=== PATIENT | female | born 1995 | race Caucasian/White ===

== ENCOUNTER 2017-01-01 13:40 | Emergency (ER) | payer OTHER ==
[~2017-01-01] VITALS: Ht 162.6 cm; Wt 52.1 kg
[2017-01-01 13:44] VITALS: BP 111/80; PULSE 92; TEMP 36.5; O2SAT 97; Ht 162.6 cm; Wt 52.1 kg
[2017-01-01] MEDS ORDERED: BCPILLS PO (13:50)
--- NOTE | 2017-01-01 13:57 | EMERGENCY ROOM VISIT NOTE ---
ED Visit Note First contact with patient: 13:49 CHIEF COMPLAINT: Left Hand laceration HISTORY OF PRESENT ILLNESS: This 34-year-old female presents the ER with chief complaint of a laceration to the palm of her left hand. The patient states that she was trying to remove an avocado pit and accidentally cut her left hand. The patient is right-hand dominant. The patient's immunizations are up- to-date. REVIEW OF SYSTEMS: 6 system review was performed and was negative unless stated otherwise in history of present illness. PMH: The patient is healthy; asthma SOCIAL HISTORY: Patient is a [employer] student. Patient denies any tobacco or alcohol use. PHYSICAL EXAM: Vital Signs: Were reviewed Reviewed Nurse's notes. GENERAL: 21- year-old female appears in no acute distress. MENTAL Status: Alert and oriented 3. LEFT HAND: On the palmar aspect there is a 1.5 cm superficial cut without any active bleeding. The wound looks clean. EMERGENCY DEPARTMENT COURSE: The patient was evaluated. The wound was cleansed with saline and then dried and Dermabond applied. The patient was discharged home in stable condition. DIAGNOSIS: 1.5 cm superficial laceration left hand DISCHARGE INSTRUCTIONS & TREATMENT: you may get the hand wet but do not submerge it in water. The Dermabond will fall off in several days. Any signs of infection, follow-up with [facility] services. Current/Historical Medications Scheduled Control Pills ( Control Pills), 1 TAB PO DAILY Allergies Coded Allergies: No Known Allergies (Unverified , 01/01/17) Vital Signs Date Time Temp Pulse Resp B/P (MAP) Pulse Ox O2 Delivery O2 Flow Rate FiO2 01/01/17 13:44 36.5 92 18 111/80 97 Room Air Departure Information Referrals No Doctor, Assigned (PCP) Patient Instructions [facility]
== END 2017-01-01 14:03 | disposition home or self-care (01) ==
LOC: C.EDB 13:43 → C.EDD 14:03
DX: S61.412A Laceration without foreign body of left hand, initial encounter (principal); W26.0XXA Contact with knife, initial encounter; Y92.9 Unspecified place or not applicable; J45.909 Unspecified asthma, uncomplicated; Z79.3 Long term (current) use of hormonal contraceptives

== ENCOUNTER 2017-01-07 13:29 | Emergency (ER) | payer OTHER ==
[~2017-01-07] VITALS: Ht 162.6 cm; Wt 53.4 kg
[~2017-01-07 13:29] MED LIST: BCPILLS PO
[2017-01-07 13:34] VITALS: BP 113/76; PULSE 93; TEMP 36.5; O2SAT 100; Ht 162.6 cm; Wt 53.4 kg
--- NOTE | 2017-01-07 14:03 | EMERGENCY ROOM VISIT NOTE ---
ED Visit Note First contact with patient: 13:42 CHIEF COMPLAINT: Recheck left hand laceration HISTORY OF PRESENT ILLNESS: Patient is a [id number] 21-year-old white female who returns to the emergency department for reevaluation of a laceration to the palm of her left hand that she sustained 6 days ago. She was trying to cut an avocado when she accidentally cut her hand. She was seen here that day, and wound was repaired with Dermabond. Patient reports that she has been following instructions that she received on discharge. She has noticed in the last day, that the wound appears "white" and she is concerned about infection. There has been no drainage or discharge. No streaking. She has no pain. REVIEW OF SYSTEMS: NEUROLOGICAL: No headache, change in mental status, weakness , numbness, or dizziness. GENERAL: No fever or chills, easy fatigue, loss of appetite, or significant weight change. PMH: Electronic medical records are reviewed and summarized as above/below. See Problem List.. SOCIAL HISTORY: Patient is a college student who lives in an apartment with roommates. PHYSICAL EXAM: Vital Signs: Reviewed Nurse's notes. INTEGUMENTARY: Examination of the palmar aspect of the left hand show a 1.5 cm laceration, with intact Dermabond. Dermabond was removed without difficulty. The patient still has gaping of the wound edges, with herniation of the subcutaneous fat. Wound edges are slightly macerated, but the area is nontender to palpation, there is no erythema, induration or purulent drainage appreciated. Extension and flexion of the fingers is full and strong. Sensation to pain and light touch is intact. EMERGENCY DEPARTMENT COURSE: Dermabond was removed without difficulty. Wound edges are slightly macerated, and still gaping, there is no erythema, fluctuance or purulent drainage appreciated. The area was cleansed with saline and hydrogen peroxide. Benzoin and Steri-Strips were applied. The wound will have to heal by secondary intention, and the patient access understanding of this. She does not have any signs of infection. I do not suspect tendinous injury or retained foreign body. Wound care measures were discussed with the patient and she expressed understanding. Given additional Steri-Strips that she can use to reinforce the wound if necessary. Medication reconciliation: I attest that I have personally reviewed the patient' s current medication list. Blood pressure screening : Patient was found to have normal blood pressure on screening and does not require follow-up. Problem List Medical Problems: (1) Unspecified Asthma, Uncomplicated Status: Chronic Current/Historical Medications Scheduled Control Pills ( Control Pills), 1 TAB PO DAILY Allergies Coded Allergies: No Known Allergies (Unverified , 01/07/17) Vital Signs Date Time Temp Pulse Resp B/P (MAP) Pulse Ox O2 Delivery O2 Flow Rate FiO2 01/07/17 13:34 36.5 93 18 113/76 100 Room Air Departure Information Impression Primary Impression: Laceration of left hand Referrals No Doctor, Assigned (PCP) Patient Instructions My [facility] Additional Instructions Keep the wound clean and dry. May use a small amount of antibiotic ointment over top of the Steri-Strips if desired. Allow the Steri-Strips to fall off on their own. They reinforce Steri-Strips if needed. Limit activity with the hand until laceration heals. Return to the ER for severe pain, persistent fevers, spreading redness, or any worsening of your condition. Follow up with your primary physician within 2-3 days for a recheck of the current condition. Problem Qualifiers Primary Impression: Laceration of left hand Encounter type: subsequent encounter Foreign body presence: without foreign body Qualified Codes: S61.412D - Laceration without foreign body of left hand , subsequent encounter
== END 2017-01-07 14:09 | disposition home or self-care (01) ==
LOC: C.EDB 13:33 → C.EDD 14:09
DX: S61.412A Laceration without foreign body of left hand, initial encounter (principal); W45.8XXA Other foreign body or object entering through skin, initial encounter; Y92.9 Unspecified place or not applicable; Z09 Encounter for follow-up examination after completed treatment for conditions other than malignant neoplasm; Z79.3 Long term (current) use of hormonal contraceptives

== ENCOUNTER 2017-01-21 14:18 | Emergency (ER) | payer OTHER ==
[~2017-01-21] VITALS: Ht 162.6 cm; Wt 53.7 kg
[2017-01-21 14:20] VITALS: Ht 162.6 cm; Wt 53.7 kg
[2017-01-21] MEDS ORDERED: SODIUM CHLORIDE 0.9% 1000ML 1,000 ML IV STA ×3 (14:28→17:41)
[2017-01-21] MEDS ORDERED: IBUPROFEN 600 MG TAB PO STA (14:28)
[2017-01-21] MEDS ORDERED: ONDANSETRON INJ 2 MG/ML 2 ML VIAL IV STA (14:28)
[2017-01-21] MEDS ORDERED: ACETAMINOPHEN 500 MG TAB PO STA (14:28)
[2017-01-21] MEDS ORDERED: CEFTRIAXONE SOD INJ 1 GM ADDVIAL IV STA (14:45)
--- NOTE | 2017-01-21 14:51 | EMERGENCY ROOM VISIT NOTE ---
History Report prepared by Jas: Mina Kirk Under the Supervision of: Dr. Loc Rouse M.D. First contact with patient: 14:25 Chief Complaint: URINARY SYMPTOMS Stated Complaint: POSS. KIDNEY INFECTION, FEVER, ALL SYMPTOMS History of Present Illness The patient is a 21 year old white female with a past medical history of a UTI who presents to the ED with a cc of waxing and waning urinary symptoms beginning last week. Positive fever, nausea, right lower back pain, burning with urination, and urinary frequency. Negative chest pain, shortness of breath , vomiting, or abdominal pain. When her symptoms began she was placed on a week dose of Macrobid. She took cranberry pills and a yeast pill as well. This was her first UTI. She got mildly better, but started to worsen yesterday with a fever and her back pain. She denies any past medical problems, surgeries, or allergies. She is on control with her last menstrual period being 4 weeks ago. Source of History: patient Onset: 1 week ago Position: other () Symptom Intensity: moderate Quality: other (Urinary burning and frequency) Timing: worsening Associated Symptoms: + fevers, + nausea, + back pain, No chest pain, No SOB , No vomiting, No abdominal pain Review of Systems See HPI for pertinent positives and negatives. A total of ten systems were reviewed and were otherwise negative. Past Medical & Surgical Medical Problems: (1) Unspecified Asthma, Uncomplicated Family History Cancer Diabetes mellitus Hypertension Social History Smoking Status: Never Smoker Smokeless Tobacco Use: No Alcohol Use: none Drug Use: none Marital Status: single Housing Status: lives with roommate Occupation Status: [employer] student Current/Historical Medications Scheduled Control Pills ( Control Pills), 1 TAB PO DAILY Cefuroxime Axetil (Cefuroxime Axetil), 1 TAB PO BID Allergies Coded Allergies: No Known Allergies (Unverified , 01/07/17) Physical Exam Vital Signs Date Time Temp Pulse Resp B/P (MAP) Pulse Ox O2 Delivery O2 Flow Rate FiO2 01/21/17 19:36 37.5 90 20 111/71 100 01/21/17 19:35 90 20 111/71 100 Room Air 01/21/17 18:34 90 20 111/71 100 Room Air 01/21/17 17:19 37.5 111 20 122/78 95 Room Air 01/21/17 14:56 128 01/21/17 14:20 39.5 144 20 127/82 95 Room Air Physical Exam GENERAL: Awake, alert, well-appearing, NAD HENT: Normocephalic, atraumatic. EYES: Normal conjunctiva. Sclera non-icteric. NECK: Supple. No nuchal rigidity. FROM. RESPIRATORY: CTAB, no rhonchi, wheezing, crackles CARDIAC: Tachycardic rate, RR, no MRG ABDOMEN: Soft, NTND, BS+ MSK: No chest wall TTP, no LE edema. Mild right sided lower back pain. No true CVA TTP. NEURO: GCS 15, CN 2-12 intact, moves all 4s on command SKIN: No rash or jaundice noted. Medical Decision & Procedures ER Provider Diagnostic Interpretation: Radiology results as stated below per my review and radiologist interpretation: ABD/PELVIS WITHOUT FOR STONE HISTORY: 21 years-old Female likely pyelo, r/o obstructing stone, R LBP acute right-sided low back pain with concern for kidney stones. COMPARISON: None available TECHNIQUE: Multiple axial CT images of the abdomen and pelvis were obtained without IV contrast utilizing kidney stone protocol. A dose lowering technique was used consistent with the principals of FREDRICKRA. FINDINGS: Lung bases are generally clear. No pneumoperitoneum imaged inferior cardiac chambers are unremarkable. The liver, spleen, pancreas and adrenal glands are within normal limits. Gallbladder is mildly contracted. The left kidney, left ureter, uterus, bladder and adnexa are unremarkable. Mild free pelvic fluid within the cul-de-sac is nonspecific and may be physiologic. There is mild dilation of the right renal pelvis and right ureter with thickened urothelial jessica of the ureter demonstrating mild surrounding inflammatory stranding. No obstructing stone or mass identified. The abdominal aorta is normal in course and caliber. No bulky retroperitoneal adenopathy. No bowel obstruction or focal bowel wall thickening. Appendix not definitely seen. No secondary evidence of acute appendicitis. Soft tissues are unremarkable. Bones appear intact. Transitional lumbosacral anatomy noted. IMPRESSION: 1. Mild dilation of the right renal pelvis and right ureter is noted with mild surrounding inflammatory stranding. No obstructing stone or mass identified. These findings may be secondary to ascending urinary tract infection or sequela of recently passed stone. 2. Mild free fluid within the cul-de-sac, likely physiologic. 3. Appendix not definitely seen. No secondary evidence of acute appendicitis. The above report was generated using voice recognition software. It may contain grammatical, syntax or spelling errors. Electronically signed by: Sathish Ng M.D. 01/21/2017 5:20 PM Dictated Date/Time: 01/21/2017 5:16 PM Laboratory Results 01/21/17 15:00 Red Blood Count 4.20, Mean Corpuscular Volume 91.9, Mean Corpuscular Hemoglobin 31.7, Mean Corpuscular Hemoglobin Concent 34.5, Mean Platelet Volume 9.2, Neutrophils (%) (Auto) 76.7, Lymphocytes (%) (Auto) 11.2, Monocytes (%) (Auto) 11.2, Eosinophils (%) (Auto) 0.1, Basophils (%) (Auto) 0.2, Neutrophils # (Auto ) 14.59, Lymphocytes # (Auto) 2.14, Monocytes # (Auto) 2.14, Eosinophils # (Auto ) 0.01, Basophils # (Auto) 0.04 01/21/17 15:00 01/21/17 16:16 Test 01/21/17 14:50 01/21/17 15:00 01/21/17 16:16 Urine Color YELLOW Urine Appearance CLOUDY (CLEAR) Urine pH 6.5 (4.5-7.5) Urine Specific Belle 1.017 (1.000-1.030) Urine Protein 1+ (NEG) Urine Glucose (UA) NEG (NEG) Urine Ketones 1+ (NEG) Urine Occult Blood 1+ (NEG) Urine Nitrite POS (NEG) Urine Bilirubin NEG (NEG) Urine Urobilinogen NEG (NEG) Urine Leukocyte Esterase MODERATE (NEG) Urine WBC (Auto) >30 /hpf (0-5) Urine RBC (Auto) 10-30 /hpf (0-4) Urine Hyaline Casts (Auto) 1-5 /lpf (0-5) Urine Epithelial Cells (Auto) 10-20 /lpf (0-5) Urine Bacteria (Auto) 4+ (NEG) Urine Pathogenic Casts /lpf (0) Urine Test NEG (NEG) White Blood Count 19.03 K/uL (4.8-10.8) Red Blood Count 4.20 M/uL (4.2-5.4) Hemoglobin 13.3 g/dL (12.0-16.0) Hematocrit 38.6 % (37-47) Mean Corpuscular Volume 91.9 fL (80-100) Mean Corpuscular Hemoglobin 31.7 pg (25-34) Mean Corpuscular Hemoglobin Concent 34.5 g/dl (32-36) Platelet Count 258 K/uL (130-400) Mean Platelet Volume 9.2 fL (7.4-10.4) Neutrophils (%) (Auto) 76.7 % Lymphocytes (%) (Auto) 11.2 % Monocytes (%) (Auto) 11.2 % Eosinophils (%) (Auto) 0.1 % Basophils (%) (Auto) 0.2 % Neutrophils # (Auto) 14.59 K/uL (1.4-6.5) Lymphocytes # (Auto) 2.14 K/uL (1.2-3.4) Monocytes # (Auto) 2.14 K/uL (0.11-0.59) Eosinophils # (Auto) 0.01 K/uL (0-0.5) Basophils # (Auto) 0.04 K/uL (0-0.2) RDW Standard Deviation 43.3 fL (36.4-46.3) RDW Coefficient of Variation 12.8 % (11.5-14.5) Immature Granulocyte % (Auto) 0.6 % Immature Granulocyte # (Auto) 0.11 K/uL (0.00-0.02) Anion Gap 10.0 mmol/L (3-11) Est Creatinine Clear Calc Drug Dose 76.7 ml/min Estimated GFR () 94.6 Estimated GFR (Non- 81.6 BUN/Creatinine Ratio 9.7 (10-20) Calcium Level 9.1 mg/dl (8.5-10.1) Total Bilirubin 0.7 mg/dl (0.2-1) Alanine Aminotransferase (ALT/SGPT) 25 U/L (12-78) Alkaline Phosphatase 65 U/L (45-117) Total Protein 7.7 gm/dl (6.4-8.2) Albumin 3.4 gm/dl (3.4-5.0) Lipase 117 U/L (73-393) Direct Bilirubin 0.1 mg/dl (0-0.2) Aspartate Amino Transf (AST/SGOT) 21 U/L (15-37) Laboratory results reviewed by me Medications Administered Medications (Trade) Dose Ordered Sig/Diane Route Start Time Stop Time Status Last Admin Dose Admin Sodium Chloride 1,000 ml @ 999 mls/hr Q1H1M STAT IV 01/21/17 14:28 01/21/17 15:28 DC 01/21/17 15:21 999 MLS/HR Ondansetron HCl (Zofran Inj) 4 mg NOW STAT IV 01/21/17 14:28 01/21/17 14:29 DC 01/21/17 15:19 4 MG Acetaminophen (Tylenol Tab) 1,000 mg NOW STAT PO 01/21/17 14:28 01/21/17 14:29 DC 01/21/17 15:20 1,000 MG Ibuprofen (Motrin Tab) 600 mg NOW STAT PO 01/21/17 14:28 01/21/17 14:29 DC 01/21/17 15:21 600 MG Ceftriaxone Sodium (Rocephin Inj) 1 gm NOW STAT IV 01/21/17 14:45 01/21/17 14:46 DC 01/21/17 15:21 1 GM Sodium Chloride 1,000 ml @ 999 mls/hr Q1H1M STAT IV 01/21/17 14:51 01/21/17 15:51 DC 01/21/17 15:22 999 MLS/HR Sodium Chloride 1,000 ml @ 999 mls/hr Q1H1M STAT IV 01/21/17 17:41 01/21/17 18:41 DC 01/21/17 18:02 999 MLS/HR ECG Indication: tachycardia Rate (beats per minute): 111 Findings: no ectopy, other (Normal intervals, normal axis, single isolated t- wave inversion in V2. No other STS changes or t-wave inversions) ED Course 1425: The patient was evaluated in room B2. A complete history and physical exam was performed. 1557: She feels better. We will give the patient a CT scan to rule out an obstructing stone. 1740: She is still tachycardic but is doing well. She will get more fluids. 1850: I reevaluated the patient. Discussed results and discharge instructions: She verbalized understanding and agreement. The patient is ready for discharge. Medical Decision Differential diagnosis: Etiologies such as renal colic, appendicitis, diverticulitis, mesenteric ischemia, aortic pathology, infections, inflammatory bowel disease, PUD, biliary pathology, UTI, as well as others were entertained. The patient is a 21 year old white female with a past medical history of a UTI who presents to the ED with a cc of waxing and waning urinary symptoms beginning last week. Positive fever, nausea, right lower back pain, burning with urination, and urinary frequency. Negative chest pain, shortness of breath , vomiting, or abdominal pain. Patient was seen and evaluated at the bedside. Patient is very well-appearing. Patient has had fevers up to 104 some right lower back pain. Patient states possibly 2 weeks ago patient was experienced symptoms of urinary frequency low back pain and burning urination. Patient was placed on antibiotic she believes are present and then may be Macrobid. She took a seven-day course. She completed this by 1 week prior. Patient states that she had worsening of symptoms within the last 2-3 days. Patient has had fevers mild low back pain occasional nausea but no vomiting. Patient denies any other abdominal pain. Patient with a soft abdomen. Patient had blood work, UA, and supportive care. EKG unremarkable except sinus tach. Patient w/ UA consistent w/ infection. CT obtained given WBC 19 w/ LBP to r/o obstructing stone. No stone ID'ed. Patient looks very well. Fever resolved. Tachycardia improving. Additional IVF and PO. Patient reassessed feeling improved. Patient was given an unknown antibiotic however according to preantibiotic gram cefotetan was ordered as an outpatient as it had fairly good Escherichia coli coverage. Blood and urine cultures were sent and the patient was told that there were positive or not successful to the antibiotics and we will give her a call for IV antibiotics. Patient was looking much improved her fever resolved and tachycardia resolved as well. Patient given f/u, d/c and return precautions which were very strict stating if any changes inside of 24-48 hrs or lack of improvement she needs to return. Patient expressed understanding and deemed reliable. D/c'ed to home. Medication Reconcilliation Current Medication List: was personally reviewed by me Blood Pressure Screening Patient's blood pressure: Normal blood pressure Blood pressure disposition: Did not require urgent referral Impression Primary Impression: Back pain Additional Impression: Pyelonephritis Scribe Attestation The scribe's documentation has been prepared under my direction and personally reviewed by me in its entirety. I confirm that the note above accurately reflects all work, treatment, procedures, and medical decision making performed by me. Departure Information Dispostion Home / Self-Care Prescriptions Cefuroxime Axetil (CEFUROXIME AXETIL) 500 Mg Tab 1 TAB PO BID for 7 Days, #14 TAB Prov: Loc Rouse M.D. 01/21/17 Referrals No Doctor, Assigned (PCP) Forms HOME CARE DOCUMENTATION FORM, IMPORTANT VISIT INFORMATION Patient Instructions My [facility], Pyelonephritis Dc Additional Instructions Please return to the emergency department if you have worsening or recurrent symptoms not amenable to at-home treatment. Please call for a follow-up appointment with her primary care physician. Please take your medications as prescribed. If you have other concerns and/or complaints please feel free to also call your primary care physician's office or return the ED for further evaluation, management, and treatment. If you do not improve w/in 24-48 hrs or you get worse, please return to the EC. You may take 600 mg Ibuprofen every 6 hours as needed for pain/fever with food for no more than 2 consecutive days. You may take tylenol 1000 mg every 6 hours as needed for pain/fever. You may take motrin and tylenol separately or at the same time. You have been examined and treated today on an emergency basis only. This is not a substitute for, or an effort to provide, complete comprehensive medical care. It is impossible to recognize and treat all injuries or illnesses in a single emergency department visit. It is therefore important that you follow up closely with [facility]. Call as soon as possible for an appointment. Thank you for your time and consideration. I look forward to speaking with you again soon. Please don't hesitate to call us if you have any questions. Problem Qualifiers Primary Impression: Back pain Back pain location: low back pain Chronicity: acute Back pain laterality: right Sciatica presence: without sciatica Qualified Codes: M54.5 - Low back pain
[2017-01-21 15:13] LABS: BASO % 0.2 %; BASO ABS # 0.04 K/uL (0-0.2); COMPLETE YES; EOS % 0.1 %; HEMATOCRIT 38.6 % (37-47); IG% 0.6 %; LYMPH % 11.2 %; LYMPH ABS # 2.14 K/uL (1.2-3.4); MEAN CELL VOLUME 91.9 fL (80-100); MEAN CORPUSCULAR HEMOGLOBIN 31.7 pg (25-34); MEAN CORPUSCULAR HGB CONC 34.5 g/dl (32-36); MEAN PLATELET VOLUME 9.2 fL (7.4-10.4); MONO % 11.2 %; NEUT % 76.7 %; PLATELET COUNT 258 K/uL (130-400); WHITE BLOOD COUNT 19.03 K/uL (4.8-10.8)
[2017-01-21 15:21] LABS: URINE APPEARANCE CLOUDY (CLEAR); URINE BILIRUBIN NEG (NEG); URINE COLOR YELLOW; URINE NITRITE POS (NEG); URINE PH 6.5 (4.5-7.5); URINE SPECIFIC GRAVITY 1.017 (1.000-1.030); UROBILINOGEN NEG (NEG); ZZUR CULT IF INDIC CLEAN CATCH YES
[2017-01-21 15:47] LABS: MANUAL MICROSCOPIC REQUIRED? NO; REVIEW REQ? YES
[2017-01-21 16:12] LABS: ALKALINE PHOSPHATASE 65 U/L (45-117); ALT/SGPT 25 U/L (12-78); BLOOD UREA NITROGEN 10 mg/dl (7-18); BUN/CREATININE RATIO 9.7 (10-20); CALCIUM 9.1 mg/dl (8.5-10.1); CARBON DIOXIDE 22 mmol/L (21-32); CHLORIDE 100 mmol/L (98-107); GLUCOSE 95 mg/dl (70-99); SODIUM 132 mmol/L (136-145)
[2017-01-21 16:49] LABS: POTASSIUM 3.3 mmol/L (3.5-5.1)
--- NOTE | 2017-01-21 17:22 | DIAGNOSTIC IMAGING REPORT ---
ABD/PELVIS WITHOUT FOR STONE HISTORY: 21 years-old Female likely pyelo, r/o obstructing stone, R LBP acute right-sided low back pain with concern for kidney stones. COMPARISON: None available TECHNIQUE: Multiple axial CT images of the abdomen and pelvis were obtained without IV contrast utilizing kidney stone protocol. A dose lowering technique was used consistent with the principals of KEVIN. FINDINGS: Lung bases are generally clear. No pneumoperitoneum imaged inferior cardiac chambers are unremarkable. The liver, spleen, pancreas and adrenal glands are within normal limits. Gallbladder is mildly contracted. The left kidney, left ureter, uterus, bladder and adnexa are unremarkable. Mild free pelvic fluid within the cul-de-sac is nonspecific and may be physiologic. There is mild dilation of the right renal pelvis and right ureter with thickened urothelial jessica of the ureter demonstrating mild surrounding inflammatory stranding. No obstructing stone or mass identified. The abdominal aorta is normal in course and caliber. No bulky retroperitoneal adenopathy. No bowel obstruction or focal bowel wall thickening. Appendix not definitely seen. No secondary evidence of acute appendicitis. Soft tissues are unremarkable. Bones appear intact. Transitional lumbosacral anatomy noted. IMPRESSION: 1. Mild dilation of the right renal pelvis and right ureter is noted with mild surrounding inflammatory stranding. No obstructing stone or mass identified. These findings may be secondary to ascending urinary tract infection or sequela of recently passed stone. 2. Mild free fluid within the cul-de-sac, likely physiologic. 3. Appendix not definitely seen. No secondary evidence of acute appendicitis. The above report was generated using voice recognition software. It may contain grammatical, syntax or spelling errors. Electronically signed by: Sathish Ng M.D. 01/21/2017 5:20 PM Dictated Date/Time: 01/21/2017 5:16 PM
[2017-01-21] MEDS ORDERED: CEFU1TAB36 PO (18:42)
[2017-01-21 19:36] VITALS: BP 111/71; PULSE 90; TEMP 37.5; O2SAT 100
--- NOTE | 2017-01-24 13:29 | Pharmacy Progress Note ---
ED Pharmacist Culture FollowUp Date of Service: Jan 24, 2017. ED secretary book keeper forwarded blood cx results from 01/21/17 to mi. One of two blood cx 's are growing e coli, along w/ a urine cx also growing e coli. She was initially prescribed abx for pyelonephritis and discharged home on 01/21 , however on 01/22 the patient was called back to the hospital due to the positive blood cx. She was admitted 01/22 and discharged to home on 01/24 w/ Rx for Ciprofloxacin 500mg PO BID x 12 days (to complete a 14 day tx course). The e coli in the cultures is sensitive to Ciprofloxacin. No further action required.
== END 2017-01-21 19:38 | disposition home or self-care (01) ==
LOC: C.EDB 14:19
DX: M54.5 Low back pain (principal); N12 Tubulo-interstitial nephritis, not specified as acute or chronic; Z83.3 Family history of diabetes mellitus; Z82.49 Family history of ischemic heart disease and other diseases of the circulatory system

== ENCOUNTER 2017-01-22 12:39 | Inpatient (IN) | payer OTHER ==
[~2017-01-22] VITALS: Ht 162.6 cm; Wt 53.6 kg
[~2017-01-22 12:39] MED LIST changes: +CEFU1TAB36 PO
[2017-01-22] MEDS ORDERED: CEFTRIAXONE SOD INJ 1 GM ADDVIAL IV STA (13:17)
[2017-01-22] MEDS ORDERED: SODIUM CHLORIDE 0.9% 1000ML 1,000 ML IV STA (13:17)
[2017-01-22 14:11] LABS: BASO % 0.1 %; BASO ABS # 0.03 K/uL (0-0.2); COMPLETE YES; EOS % 0.3 %; HEMATOCRIT 34.1 % (37-47); IG% 0.4 %; LYMPH % 10.6 %; LYMPH ABS # 2.17 K/uL (1.2-3.4); MEAN CELL VOLUME 93.2 fL (80-100); MEAN CORPUSCULAR HEMOGLOBIN 30.9 pg (25-34); MEAN CORPUSCULAR HGB CONC 33.1 g/dl (32-36); MEAN PLATELET VOLUME 9.2 fL (7.4-10.4); MONO % 13.9 %; NEUT % 74.7 %; PLATELET COUNT 237 K/uL (130-400); RED BLOOD COUNT 3.66 M/uL (4.2-5.4); WHITE BLOOD COUNT 20.54 K/uL (4.8-10.8)
[2017-01-22 14:31] LABS: URINE APPEARANCE CLEAR (CLEAR); URINE BILIRUBIN NEG (NEG); URINE COLOR YELLOW; URINE EPITHELIAL CELL AUTO >30 /lpf (0-5); URINE NITRITE NEG (NEG); URINE PH 6.5 (4.5-7.5); URINE SPECIFIC GRAVITY 1.015 (1.000-1.030); UROBILINOGEN NEG (NEG)
[2017-01-22 14:36] LABS: MANUAL MICROSCOPIC REQUIRED? NO; REVIEW REQ? NO
[2017-01-22 14:42] LABS: ZZUR CULT IF INDIC CLEAN CATCH NO
--- NOTE | 2017-01-22 14:43 | DIAGNOSTIC IMAGING REPORT ---
ULTRASOUND KIDNEYS AND BLADDER CLINICAL HISTORY: Sepsis. Pyelonephritis. COMPARISON STUDY: Abdominal CT dated 01/21/2017. TECHNIQUE: Real-time, grayscale, and color flow sonography of the kidneys and bladder is performed. Images are reviewed in the transverse and longitudinal planes. FINDINGS: Kidneys: The kidneys are normal in size and heterogeneous in echotexture, right greater than left. The right kidney measures 12.0 x 4.3 x 6.7 cm and the left kidney measures 10.3 x 4.7 x 5.8 cm. There is no hydronephrosis. No shadowing renal calculi are identified. There is no sonographic evidence of contour deforming renal mass lesion. No perinephric fluid is identified. Bladder: Debris is present within the bladder lumen. The bladder is otherwise normal in appearance. Bilateral ureteral jets were seen. IMPRESSION: 1. The kidneys are normal in size and without hydronephrosis. 2. The kidneys are heterogeneous in echotexture, right greater than left. This is likely related to the reported clinical history of pyelonephritis. Clinical correlation will be required. 3. Debris is noted in the bladder lumen. Electronically signed by: Ed Devries M.D. 01/22/2017 2:41 PM Dictated Date/Time: 01/22/2017 2:39 PM
[2017-01-22 14:46] LABS: ALT/SGPT 21 U/L (12-78); AST/SGOT 20 U/L (15-37); BLOOD UREA NITROGEN 6 mg/dl (7-18); BUN/CREATININE RATIO 7.9 (10-20); CALCIUM 8.3 mg/dl (8.5-10.1); CARBON DIOXIDE 22 mmol/L (21-32); CHLORIDE 107 mmol/L (98-107); CREATININE 0.75 mg/dl (0.60-1.20); GLUCOSE 120 mg/dl (70-99); POTASSIUM 3.2 mmol/L (3.5-5.1); SODIUM 137 mmol/L (136-145)
[2017-01-22 14:51] LABS: ALKALINE PHOSPHATASE 64 U/L (45-117)
[2017-01-22] MEDS ORDERED: ALUMINUM/MAGNESIUM/SIMETH (MAALOX MAX) 30 ML UDC PO PRN (15:45)
[2017-01-22] MEDS ORDERED: PIPERACILL/TAZOBAC CONSULT ACTIVE PRN (15:45)
[2017-01-22] MEDS ORDERED: ACETAMINOPHEN 325 MG TAB PO PRN (15:45)
[2017-01-22] MEDS ORDERED: POLYETHYLENE (MIRALAX) 17 GM PACK PO PRN (15:45)
[2017-01-22] MEDS ORDERED: MAGNESIUM HYDROXIDE SUSP 30 ML UDC PO PRN (15:45)
[2017-01-22] MEDS ORDERED: ONDANSETRON INJ 2 MG/ML 2 ML VIAL IV PRN (15:45)
[2017-01-22 16:00] VITALS: BP 104/73; PULSE 87; TEMP 36.7; O2SAT 98
--- NOTE | 2017-01-22 16:03 | History and Physical ---
History & Physical Date & Time of Service: Jan 22, 2017 at 15:43 Chief Complaint: Abnormal Labs, Recieved Call From Er To Come Back Primary Care Physician: [facility] History of Present Illness This is a 21 y/o female with a history of a recent UTI who presented to the ED on 01/22 with positive blood culture. The patient developed a urinary tract infection with dysuria and increased urinary frequency about 1.5 weeks ago. She was prescribed an antibiotic (she is not sure which) to take for 7 days and her symptoms improved. A few days ago the patient developed right flank/back pain, fevers, chills, and sweats. She presented to the ED on 01/21 febrile, tachycardic, and with leukocytosis. Blood and urine cultures were drawn. An abdomen/pelvis CT showed mild inflammatory stranding of the right kidney. The patient was given Rocephin and then discharged home with Ceftin. Today the patient was called to return due to 1 positive blood culture with GNR. The patient states that her back/flank pain has now resolved as well as her urinary symptoms. She has not had any fevers today as well. She denies any vaginal symptoms such as pain or abnormal bleeding. The patient denies fevers, chills, sweats, chest pain, palpitations, claudication, cough, wheezing, shortness of breath, nausea, vomiting, abdominal pain, dysuria, hematuria, urinary retention , paralysis, weakness, numbness and tingling. Past Medical/Surgical History Medical Problems: (1) Unspecified Asthma, Uncomplicated Status: Chronic Family History Cancer Diabetes mellitus Hypertension Stroke Social History Smoking Status: Never Smoker Smokeless Tobacco Use: No Drug Use: none Marital Status: single Housing status: lives with roommate Occupational Status: [employer] student Allergies Coded Allergies: No Known Allergies (Unverified , 01/22/17) Home Medications Scheduled Control Pills ( Control Pills), 1 TAB PO DAILY Cefuroxime Axetil (Cefuroxime Axetil), 1 TAB PO BID Review of Systems Constitutional: + fatigue, No fever, No chills, No sweats Eyes: No worsening of vision, No eye pain, No diplopia ENT: No hearing loss, No sore throat, No trouble swallowing Respiratory: No cough, No wheezing, No shortness of breath Cardiovascular: No chest pain, No claudication, No palpitations Abdomen: No pain, No nausea, No vomiting Musculoskeletal: No joint pain, No muscle pain, No calf pain Genitourinary - Female: No dysuria, No urinary frequency, No hematuria Neurologic: No paralysis, No weakness, No numbness/tingling Integumentary: No rash, No itch, No color change Physical Exam Vital Signs Date Time Temp Pulse Resp B/P (MAP) Pulse Ox O2 Delivery O2 Flow Rate FiO2 01/22/17 15:02 90 18 97/55 99 Room Air 01/22/17 12:59 36.8 108 16 109/69 99 Room Air General appearance: Well-developed, well-nourished, no apparent distress Head: Normocephalic, atraumatic Eyes: Normal inspection, PERRL, EOMI ENT: Normal ENT inspection, hearing grossly normal, pharynx normal Neck: Supple, no JVD, trachea midline Respiratory/Chest: Lungs clear to auscultation, normal breath sounds, no respiratory distress Cardiovascular: Regular rate & rhythm, no gallop, no murmur Abdomen/GI: +Mild right CVA tenderness. Normal bowel sounds, non-tender, soft Extremities/Musculoskeletal: Normal inspection, no calf tenderness, no pedal edema Neurological/Psych: Alert, normal mood/affect, oriented x 3 Skin: Normal color, warm/dry, no rash Diagnostics Laboratory Results Results Past 24 Hours Test 01/22/17 13:39 01/22/17 13:43 01/22/17 13:53 Range/Units White Blood Count 20.54 4.8-10.8 K/uL Red Blood Count 3.66 4.2-5.4 M/uL Hemoglobin 11.3 12.0-16.0 g/dL Hematocrit 34.1 37-47 % Mean Corpuscular Volume 93.2 80-100 fL Mean Corpuscular Hemoglobin 30.9 25-34 pg Mean Corpuscular Hemoglobin Concent 33.1 32-36 g/dl Platelet Count 237 130-400 K/uL Mean Platelet Volume 9.2 7.4-10.4 fL Neutrophils (%) (Auto) 74.7 % Lymphocytes (%) (Auto) 10.6 % Monocytes (%) (Auto) 13.9 % Eosinophils (%) (Auto) 0.3 % Basophils (%) (Auto) 0.1 % Neutrophils # (Auto) 15.34 1.4-6.5 K/uL Lymphocytes # (Auto) 2.17 1.2-3.4 K/uL Monocytes # (Auto) 2.85 0.11-0.59 K/uL Eosinophils # (Auto) 0.07 0-0.5 K/uL Basophils # (Auto) 0.03 0-0.2 K/uL RDW Standard Deviation 44.5 36.4-46.3 fL RDW Coefficient of Variation 13.0 11.5-14.5 % Immature Granulocyte % (Auto) 0.4 % Immature Granulocyte # (Auto) 0.08 0.00-0.02 K/uL Sodium Level 137 136-145 mmol/L Potassium Level 3.2 3.5-5.1 mmol/L Chloride Level 107 98-107 mmol/L Carbon Dioxide Level 22 21-32 mmol/L Anion Gap 8.0 3-11 mmol/L Blood Urea Nitrogen 6 7-18 mg/dl Creatinine 0.75 0.60-1.20 mg/dl Est Creatinine Clear Calc Drug Dose 102.1 ml/min Estimated GFR () 133.9 Estimated GFR (Non- 115.6 BUN/Creatinine Ratio 7.9 10-20 Random Glucose 120 70-99 mg/dl Calcium Level 8.3 8.5-10.1 mg/dl Total Bilirubin 0.3 0.2-1 mg/dl Direct Bilirubin < 0.1 0-0.2 mg/dl Aspartate Amino Transf (AST/SGOT) 20 15-37 U/L Alanine Aminotransferase (ALT/SGPT) 21 12-78 U/L Alkaline Phosphatase 64 45-117 U/L Total Protein 6.4 6.4-8.2 gm/dl Albumin 2.7 3.4-5.0 gm/dl Bedside Lactic Acid Venous 1.01 0.90-1.70 mmol/L Urine Color YELLOW Urine Appearance CLEAR CLEAR Urine pH 6.5 4.5-7.5 Urine Specific [place] 1.015 1.000-1.030 Urine Protein 2+ NEG Urine Glucose (UA) NEG NEG Urine Ketones 1+ NEG Urine Occult Blood 2+ NEG Urine Nitrite NEG NEG Urine Bilirubin NEG NEG Urine Urobilinogen NEG NEG Urine Leukocyte Esterase SMALL NEG Urine WBC (Auto) >30 0-5 /hpf Urine RBC (Auto) 10-30 0-4 /hpf Urine Hyaline Casts (Auto) 5-10 0-5 /lpf Urine Epithelial Cells (Auto) >30 0-5 /lpf Urine Bacteria (Auto) NEG NEG Microbiology Results 01/22/17 Blood Culture, Received Pending 01/22/17 Blood Culture, Received Pending Diagnostic Radiology Reviewed the following studies and agree with interpretation as follows: Patient Name: ABEBA MADISON Unit Number: [id number] Dictated: 01/22/171438 Transcribed: 01/22/171438 EV Printed Date/Time: [~ rep prt dt]/[~ rep prt tm] [~ rep ct labl] - [~ rep ct ivnm] [facility] Radiology Department [place] [id number] Dictated: 01/22/171438 Transcribed: 01/22/171438 EV Printed Date/Time: [~ rep prt dt]/[~ rep prt tm] [~ rep ct labl] - [~ rep ct ivnm] Patient: ABEBA MADISON Address1: [address] [place] [address] Rec: [id number] Address2: Acct ID: [id number] [facility] Zip: [place] [address] Date: 1995 Sex: F Room/Bed: Ref Phy: [facility] SC: ADIN Dennis Phy: Report #: [id number] Janel Phy: [facility] Test: ARDEN Admit Phy: Jewel Inspector: CONSTANTIN Interpreting Phy: Ed Devries M.D. Diagnosis: ABNORMAL LABS, RECIEVED CALL FROM ER TO COME BACK Ordering Phy: Rush Lazaro DO Service Date: 01/22/17 Admit Date: 01/22/17 MNE: [id number] CONF: DICTATED BY: Ed Devries M.D.]] CC: Rush Lazaro DO [facility] Endcc: [~ rep ct add3]] ULTRASOUND KIDNEYS AND BLADDER CLINICAL HISTORY: Sepsis. Pyelonephritis. COMPARISON STUDY: Abdominal CT dated 01/21/2017. TECHNIQUE: Real-time, grayscale, and color flow sonography of the kidneys and bladder is performed. Images are reviewed in the transverse and longitudinal planes. FINDINGS: Kidneys: The kidneys are normal in size and heterogeneous in echotexture, right greater than left. The right kidney measures 12.0 x 4.3 x 6.7 cm and the left kidney measures 10.3 x 4.7 x 5.8 cm. There is no hydronephrosis. No shadowing renal calculi are identified. There is no sonographic evidence of contour deforming renal mass lesion. No perinephric fluid is identified. Bladder: Debris is present within the bladder lumen. The bladder is otherwise normal in appearance. Bilateral ureteral jets were seen. IMPRESSION: 1. The kidneys are normal in size and without hydronephrosis. 2. The kidneys are heterogeneous in echotexture, right greater than left. This is likely related to the reported clinical history of pyelonephritis. Clinical correlation will be required. 3. Debris is noted in the bladder lumen. Electronically signed by: Ed Devries M.D. 01/22/2017 2:41 PM Dictated Date/Time: 01/22/2017 2:39 PM The status of this report is Signed. Draft = Not yet reviewed or approved by Radiologist. Signed = Reviewed and approved by Radiologist. <AttendingPhy></AttendingPhy> <FamilyPhy>[facility]</FamilyPhy> <PrimaryPhy>[facility]</PrimaryPhy> <UnitNumber>[id number]</ UnitNumber> <VisitNumber>[id number]</VisitNumber> <PatientName>ELIZABETHMaria AABEBA</ PatientName> <DateOfBirth>1995</DateOfBirth> <Location>[facility]</Location> < ServiceDate>01/22/17</ServiceDate> <MNE>ESINDI</MNE> <OrderingPhy>Rush Lazaro DO</OrderingPhy> <OrderingPhyMNE>f rep ord dr neil</OrderingPhyMNE> < DictatingPhyMNE>f rep dict dr enil</DictatingPhyMNE> <CCListMNE>f rep ct jamese</ CCListMNE> <AdmittingPhyMNE>f pt admit dr neil</AdmittingPhyMNE> <AttendingPhyMNE >f pt attend dr neil</AttendingPhyMNE> <ConsultingPhyMNE>f pt consult dr neil</ConsultingPhyMNE> <FamilyPhyMNE>f pt fam dr neil</FamilyPhyMNE> <OtherPhyMNE>f pt other dr neil</OtherPhyMNE> < PrimaryPhyMNE>f pt prim care dr neil</PrimaryPhyMNE> <ReferringPhyMNE>f pt referring dr neil</ReferringPhyMNE> Impression Assessment and Plan 21 y/o female with a history of a recent UTI who presented to the ED on 01/22 with positive blood culture. The patient had presented to the ED one day prior with fever, leukocytosis, and tachycardia and discharged on Ceftin. Today the patient is afebrile, VSS. Renal ultrasound negative for hydronephrosis. WBC 20.54. Potassium 3.2. Pyelonephritis, bacteremia -Admit to med/surg for observation -Blood cultures from 01/21 positive for GNR x 1, sensitivities pending -Repeat blood cultures 01/22 pending -Urine culture positive for GNR, sensitivities pending -Start Zosyn IV -NSS + 40 mEq KCl at 125 cc/hr Hypokalemia -Potassium 3.2 on admission -IVF as above -Continue to monitor DVT prophylaxis -Encourage ambulation Code Status -Level I, FULL RESUSCITATION STATUS Dispo -From home. Anticipate discharge tomorrow after sensitivities resulted -Pt's parents in [place]. Please call parents with updates, phone numbers in chart PA Physician Supervision Note: I interviewed and examined the patient. Discussed with Nichole MONTAÑO and agree with findings and plan as documented in the note. Any exceptions or clarifications are listed here: None Patient was called to return to the ER due to positive blood culture showing gram-negative bacilli. The patient had suspected pyelonephritis and was treated with ceftriaxone and cefuroxime. The patient has had recurrent fever at home but reduce fever curve. She is currently feeling fine at this point and will only minor right CVA angle tenderness Current final cultures for urine and blood are pending Her vital signs and physical exam are unremarkable in the ER this with the exception of some minor right CV angle tenderness. Her heart is regular lungs are clear Patient be observed in a facility given Zosyn until final cultures are obtained hydrated with fluids and pain control follow-up with [facility] repeat ultrasound of her kidney shows no thrush or abnormalities of her kidneys at this time Documented By: Yosvany Shankar Level of Care Med/Surg Resuscitation Status FULL RESUSCITATION VTE Prophylaxis VTE Risk Assessment Done? Y/N: Yes Risk Level: Moderate
[2017-01-22] MEDS ORDERED: IV FLUIDS COMPLETED PRN (16:15)
[2017-01-22 16:16] VITALS: BP 104/73; PULSE 87; TEMP 36.7; O2SAT 98; Ht 162.6 cm; Wt 53.6 kg
[2017-01-22] MEDS: POTASSIUM CHLORIDE INJ 40 MEQ in SODIUM CHLORIDE 0.9% 1000ML 1,000 ML IV SCH (16:40)
[2017-01-22] MEDS ORDERED: PIPERACILL/TAZOBAC IV 3.375 GM in DEXTROSE 5% 100ML IV ONE (17:00)
--- NOTE | 2017-01-22 19:17 | EMERGENCY ROOM VISIT NOTE ---
History Report prepared by Jas: Jayden Figueredo Under the Supervision of: Dr. Rush Lazaro D.O. First contact with patient: 13:04 Chief Complaint: ABNORMAL LABS Stated Complaint: ABNORMAL LABS, RECIEVED CALL FROM ER TO COME BACK History of Present Illness The patient is a 21 year old female who presents to the Emergency Room with complaints of a constant kidney infection starting a week and a half ago. The patient states that she was in the ED yesterday for urinary symptoms including burning and pain with urination and increased frequency of urination, and she had a fever starting two days ago. She states that she got a call today that she had to come back today for reevaluation for a kidney infection. The patient states that she took UTI medications, and she thinks that it was Bactrim. She states that yesterday she was given another antibiotic at the ED. The patient additionally is complaining of a headache which is worsened with movement and back pain which are both still present. The patient states that she has never had a UTI in the past, and she denies any active medical problems. The patient states that she has not had any abdominal surgeries. Pt denies ear pain, sore throat, change in vision, chest pain, shortness of breath, vomiting, diarrhea, and melena. She denies any drug use. The patient's blood cultures and urinalysis grew out gram negative bacilli. Source of History: patient Onset: a week and a half ago Position: other (kidney) Quality: other (infection) Timing: constant Associated Symptoms: + fevers, + headache, + back pain Review of Systems See HPI for pertinent positives & negatives. A total of 10 systems reviewed and were otherwise negative. Past Medical & Surgical Medical Problems: (1) Pyelonephritis (2) Unspecified Asthma, Uncomplicated Family History Cancer Diabetes mellitus Hypertension Social History Smoking Status: Never Smoker Alcohol Use: none Drug Use: none Marital Status: single Housing Status: lives with roommate Occupation Status: [employer] student Current/Historical Medications Scheduled Control Pills ( Control Pills), 1 TAB PO DAILY Cefuroxime Axetil (Cefuroxime Axetil), 1 TAB PO BID Allergies Coded Allergies: No Known Allergies (Unverified , 01/22/17) Physical Exam Vital Signs Date Time Temp Pulse Resp B/P (MAP) Pulse Ox O2 Delivery O2 Flow Rate FiO2 01/22/17 15:02 90 18 97/55 99 Room Air 01/22/17 12:59 36.8 108 16 109/69 99 Room Air Physical Exam GENERAL: Sitting up in bed, alert, well appearing, well nourished, no distress, non-toxic EYE EXAM: normal conjunctiva OROPHARYNX: no exudate, no erythema, lips, buccal mucosa, and tongue normal and mucous membranes are moist NECK: No nuchal rigidity. supple, no nuchal rigidity, no adenopathy, non-tender LUNGS: Clear to auscultation. Normal chest wall mechanics HEART: no murmurs, S1 normal and S2 normal ABDOMEN: abdomen soft, non-tender, normo-active bowel sounds, no masses, no rebound or guarding. BACK: Back is symmetrical on inspection and there is no deformity, no midline tenderness, no CVA tenderness. SKIN: no rashes and no bruising UPPER EXTREMITIES: upper extremities are grossly normal. LOWER EXTREMITIES: No pitting edema. NEURO EXAM: Normal sensorium, cranial nerves II-XII grossly intact, normal speech, no gross weakness of arms, no gross weakness of legs. Gross sensation intact. Medical Decision & Procedures ER Provider Diagnostic Interpretation: Radiology results as stated below per my review and the radiologist's interpretation: ULTRASOUND KIDNEYS AND BLADDER CLINICAL HISTORY: Sepsis. Pyelonephritis. COMPARISON STUDY: Abdominal CT dated 01/21/2017. TECHNIQUE: Real-time, grayscale, and color flow sonography of the kidneys and bladder is performed. Images are reviewed in the transverse and longitudinal planes. FINDINGS: Kidneys: The kidneys are normal in size and heterogeneous in echotexture, right greater than left. The right kidney measures 12.0 x 4.3 x 6.7 cm and the left kidney measures 10.3 x 4.7 x 5.8 cm. There is no hydronephrosis. No shadowing renal calculi are identified. There is no sonographic evidence of contour deforming renal mass lesion. No perinephric fluid is identified. Bladder: Debris is present within the bladder lumen. The bladder is otherwise normal in appearance. Bilateral ureteral jets were seen. IMPRESSION: 1. The kidneys are normal in size and without hydronephrosis. 2. The kidneys are heterogeneous in echotexture, right greater than left. This is likely related to the reported clinical history of pyelonephritis. Clinical correlation will be required. 3. Debris is noted in the bladder lumen. Electronically signed by: Ed Devries M.D. 01/22/2017 2:41 PM Dictated Date/Time: 01/22/2017 2:39 PM Laboratory Results 01/22/17 13:39 Red Blood Count 3.66, Mean Corpuscular Volume 93.2, Mean Corpuscular Hemoglobin 30.9, Mean Corpuscular Hemoglobin Concent 33.1, Mean Platelet Volume 9.2, Neutrophils (%) (Auto) 74.7, Lymphocytes (%) (Auto) 10.6, Monocytes (%) (Auto) 13.9, Eosinophils (%) (Auto) 0.3, Basophils (%) (Auto) 0.1, Neutrophils # (Auto ) 15.34, Lymphocytes # (Auto) 2.17, Monocytes # (Auto) 2.85, Eosinophils # (Auto ) 0.07, Basophils # (Auto) 0.03 01/22/17 13:39 Test 01/22/17 13:39 01/22/17 13:43 01/22/17 13:53 White Blood Count 20.54 K/uL (4.8-10.8) Red Blood Count 3.66 M/uL (4.2-5.4) Hemoglobin 11.3 g/dL (12.0-16.0) Hematocrit 34.1 % (37-47) Mean Corpuscular Volume 93.2 fL (80-100) Mean Corpuscular Hemoglobin 30.9 pg (25-34) Mean Corpuscular Hemoglobin Concent 33.1 g/dl (32-36) Platelet Count 237 K/uL (130-400) Mean Platelet Volume 9.2 fL (7.4-10.4) Neutrophils (%) (Auto) 74.7 % Lymphocytes (%) (Auto) 10.6 % Monocytes (%) (Auto) 13.9 % Eosinophils (%) (Auto) 0.3 % Basophils (%) (Auto) 0.1 % Neutrophils # (Auto) 15.34 K/uL (1.4-6.5) Lymphocytes # (Auto) 2.17 K/uL (1.2-3.4) Monocytes # (Auto) 2.85 K/uL (0.11-0.59) Eosinophils # (Auto) 0.07 K/uL (0-0.5) Basophils # (Auto) 0.03 K/uL (0-0.2) RDW Standard Deviation 44.5 fL (36.4-46.3) RDW Coefficient of Variation 13.0 % (11.5-14.5) Immature Granulocyte % (Auto) 0.4 % Immature Granulocyte # (Auto) 0.08 K/uL (0.00-0.02) Anion Gap 8.0 mmol/L (3-11) Est Creatinine Clear Calc Drug Dose 102.1 ml/min Estimated GFR () 133.9 Estimated GFR (Non- 115.6 BUN/Creatinine Ratio 7.9 (10-20) Calcium Level 8.3 mg/dl (8.5-10.1) Total Bilirubin 0.3 mg/dl (0.2-1) Direct Bilirubin < 0.1 mg/dl (0-0.2) Aspartate Amino Transf (AST/SGOT) 20 U/L (15-37) Alanine Aminotransferase (ALT/SGPT) 21 U/L (12-78) Alkaline Phosphatase 64 U/L (45-117) Total Protein 6.4 gm/dl (6.4-8.2) Albumin 2.7 gm/dl (3.4-5.0) Bedside Lactic Acid Venous 1.01 mmol/L (0.90-1.70) Urine Color YELLOW Urine Appearance CLEAR (CLEAR) Urine pH 6.5 (4.5-7.5) Urine Specific [place] 1.015 (1.000-1.030) Urine Protein 2+ (NEG) Urine Glucose (UA) NEG (NEG) Urine Ketones 1+ (NEG) Urine Occult Blood 2+ (NEG) Urine Nitrite NEG (NEG) Urine Bilirubin NEG (NEG) Urine Urobilinogen NEG (NEG) Urine Leukocyte Esterase SMALL (NEG) Urine WBC (Auto) >30 /hpf (0-5) Urine RBC (Auto) 10-30 /hpf (0-4) Urine Hyaline Casts (Auto) 5-10 /lpf (0-5) Urine Epithelial Cells (Auto) >30 /lpf (0-5) Urine Bacteria (Auto) NEG (NEG) Laboratory results per my review. Medications Administered Medications (Trade) Dose Ordered Sig/Diane Route Start Time Stop Time Status Last Admin Dose Admin Sodium Chloride 1,000 ml @ 999 mls/hr Q1H1M STAT IV 01/22/17 13:17 01/22/17 14:17 DC 01/22/17 14:03 999 MLS/HR Ceftriaxone Sodium (Rocephin Inj) 1 gm NOW STAT IV 01/22/17 13:17 01/22/17 13:21 DC 01/22/17 13:17 1 GM ED Course ED COURSE: Vital signs were reviewed and showed tachycardia The patients medical record was reviewed The above diagnostic studies were performed and reviewed. ED treatments and interventions as stated above. 1304: The patient was evaluated in room All. A complete history and physical examination was performed. 1317: Rocephin Inj 1gm IV, Sodium Chloride 1000 ml @ 999 mls/hr IV 1425: I went to reevaluate the patient, and she was in ultrasound. 1520: I reviewed the patient's case with Dr. Shankar. He will evaluate the patient for further management. 1525: Upon reevaluation, the patient is doing well.I discussed my findings with the patient and she understands and agrees with the treatment plan. Based on the patients age, coexisting illnesses, exam and lab findings the decision to treat as an inpatient was made. The patient remained stable while under my care. The patient will be evaluated for further management. Medical Decision Differential diagnosis includes etiologies such as sepsis, UTI, pneumonia, metabolic, electrolyte abnormalities, cardiac sources, intracerebral event, toxicologic, neurologic, as well as others were entertained. Patient is an extremely well-appearing 21-year-old female who was started on antibiotics for UTI by her father around January 14. She thinks she may have been taking Macrobid. Over the past 48 hours she has been having fevers and still having dysuria, urgency and frequency. She seen the ER yesterday following blood work which showed a leukocytosis 17,[address] which showed dilation of the right renal pelvis and ureter with surrounding inflammation suggesting pyelonephritis. Urine culture grew out greater than 100,000 gram- negative bacteria and blood culture came back positive within 24 hours with gram -negative bacilli. Upon presentation to the ER following being called back she was slightly tachycardic. She is otherwise extremely well-appearing. Labs show a worsening leukocytosis of 20,000. She clearly has bacteremia secondary to a UTI which progressed to pyelonephritis. With her bacteremia I gave her IV antibiotics and admitted her to internal medicine following an unremarkable renal ultrasound. No signs meningitis or encephalitis on exam. She does complain of a mild headache. Medication Reconcilliation Current Medication List: was personally reviewed by me Blood Pressure Screening Patient's blood pressure: Normal blood pressure Consults Time Called: 1512 Consulting Physician: Dr. Shankar Returned Call: 1520 I reviewed the patient's case with Dr. Shankar. He will evaluate the patient for further management. Impression Primary Impression: Gram-negative bacteremia Additional Impression: Pyelonephritis Scribe Attestation The scribe's documentation has been prepared under my direction and personally reviewed by me in its entirety. I confirm that the note above accurately reflects all work, treatment, procedures, and medical decision making performed by me. Departure Information Dispostion Being Evaluated By Hospitalist Referrals No Doctor, Assigned (PCP) Patient Instructions My [facility] [address] [facility] Problem Qualifiers
[2017-01-22] MEDS: PIPERACILL/TAZOBAC IV 3.375 GM in DEXTROSE 5% 100ML IV SCH (21:38)
[2017-01-22] MEDS ORDERED: PIPERACILL/TAZOBAC IV 3.375 GM in DEXTROSE 5% 100ML 100 ML IV SCH (22:00)
[2017-01-23 00:31] VITALS: BP 111/74; PULSE 104; TEMP 37.1; O2SAT 99
[2017-01-23] MEDS: POTASSIUM CHLORIDE INJ 40 MEQ in SODIUM CHLORIDE 0.9% 1000ML 1,000 ML IV SCH ×2 (00:51→09:25)
[2017-01-23] MEDS: PIPERACILL/TAZOBAC IV 3.375 GM in DEXTROSE 5% 100ML IV SCH ×3 (05:52→21:52)
[2017-01-23 06:03] LABS: HEMATOCRIT 35.2 % (37-47); MEAN CELL VOLUME 92.9 fL (80-100); MEAN CORPUSCULAR HEMOGLOBIN 30.1 pg (25-34); MEAN CORPUSCULAR HGB CONC 32.4 g/dl (32-36); MEAN PLATELET VOLUME 9.8 fL (7.4-10.4); PLATELET COUNT 257 K/uL (130-400); RED BLOOD COUNT 3.79 M/uL (4.2-5.4); WHITE BLOOD COUNT 14.47 K/uL (4.8-10.8)
[2017-01-23 06:33] LABS: BUN/CREATININE RATIO 9.1 (10-20); CALCIUM 8.3 mg/dl (8.5-10.1); CREATININE 0.76 mg/dl (0.60-1.20); POTASSIUM 3.8 mmol/L (3.5-5.1)
[2017-01-23 07:36] VITALS: BP 104/69; PULSE 90; TEMP 36.7; O2SAT 99
--- NOTE | 2017-01-23 09:11 | Hospitalist Progress Note ---
Hospitalist Progress Note Date of Service Jan 23, 2017. (Rhea Merchant PA-C) Subjective Pt evaluation today including: conversation w/ patient, physical exam, chart review, lab review, review of studies Pain: Minor Right flank pain PO Intake: Good Voiding: no voiding problems The patient was seen and examined this morning. Friend is present at bedside. Pt reports overnight had some sweats and felt like she had a low fever, but feels better this morning compared to yesterday. Her pain has resolved mostly, although she still has minor R low back/flank pain. Her urine is light yellow in color, without any gross hematuria. Denies dysuria, hesitancy, incontinence or retention. She notes her menstrual cycle is scheduled to start tomorrow and is currently on OCP. Discussion was held regarding awaiting results of Blood cultures. All her questions and concerns were addressed. Constitutional: + fever, + sweats, No chills, No fatigue Eyes: No redness, No problem reported ENT: No nasal symptoms, No trouble swallowing Respiratory: No cough, No shortness of breath, No dyspnea on exertion Cardiovascular: No chest pain, No edema Abdomen: No pain, No nausea, No vomiting, No diarrhea, No constipation Musculoskeletal: No joint pain, No swelling Female : + see HPI Neurologic: No weakness, No numbness/tingling Endo: No fatigue Skin: No rash, No itch (Rhea Merchant PA-C) Objective Vital Signs Date Time Temp Pulse Resp B/P (MAP) Pulse Ox O2 Delivery O2 Flow Rate FiO2 01/23/17 07:36 36.7 90 16 104/69 (81) 99 01/23/17 00:31 37.1 104 18 111/74 (86) 99 Room Air 01/23/17 00:00 Room Air 01/22/17 19:15 Room Air 01/22/17 16:16 36.7 87 16 104/73 98 Room Air 01/22/17 16:00 36.7 87 16 104/73 (83) 98 Room Air 01/22/17 15:02 90 18 97/55 99 Room Air 01/22/17 12:59 36.8 108 16 109/69 99 Room Air (Rhea Merchant PA-C) Physical Exam General Appearance: WD/WN, no apparent distress Eyes: PERRL, EOMI ENT: hearing grossly normal, pharynx normal, + pertinent finding (MMM) Neck: supple Respiratory/Chest: lungs clear, no respiratory distress, no accessory muscle use Cardiovascular: regular rate, rhythm, no murmur Abdomen: normal bowel sounds, non tender, soft Extremities: non-tender, no pedal edema, no calf tenderness Neurologic/Psychiatric: alert, normal mood/affect, oriented x 3 Skin: normal color, warm/dry Notes: Back: + minor CVA tenderness with percussion over R flank (Rhea Merchant PA-C) Laboratory Results Last 24 Hours Test 01/22/17 13:39 01/22/17 13:43 01/22/17 13:53 01/23/17 05:17 White Blood Count 20.54 K/uL 14.47 K/uL Red Blood Count 3.66 M/uL 3.79 M/uL Hemoglobin 11.3 g/dL 11.4 g/dL Hematocrit 34.1 % 35.2 % Mean Corpuscular Volume 93.2 fL 92.9 fL Mean Corpuscular Hemoglobin 30.9 pg 30.1 pg Mean Corpuscular Hemoglobin Concent 33.1 g/dl 32.4 g/dl Platelet Count 237 K/uL 257 K/uL Mean Platelet Volume 9.2 fL 9.8 fL Neutrophils (%) (Auto) 74.7 % Lymphocytes (%) (Auto) 10.6 % Monocytes (%) (Auto) 13.9 % Eosinophils (%) (Auto) 0.3 % Basophils (%) (Auto) 0.1 % Neutrophils # (Auto) 15.34 K/uL Lymphocytes # (Auto) 2.17 K/uL Monocytes # (Auto) 2.85 K/uL Eosinophils # (Auto) 0.07 K/uL Basophils # (Auto) 0.03 K/uL RDW Standard Deviation 44.5 fL 43.3 fL RDW Coefficient of Variation 13.0 % 12.8 % Immature Granulocyte % (Auto) 0.4 % Immature Granulocyte # (Auto) 0.08 K/uL Sodium Level 137 mmol/L 140 mmol/L Potassium Level 3.2 mmol/L 3.8 mmol/L Chloride Level 107 mmol/L 110 mmol/L Carbon Dioxide Level 22 mmol/L 23 mmol/L Anion Gap 8.0 mmol/L 7.0 mmol/L Blood Urea Nitrogen 6 mg/dl 7 mg/dl Creatinine 0.75 mg/dl 0.76 mg/dl Est Creatinine Clear Calc Drug Dose 102.1 ml/min 100.7 ml/min Estimated GFR () 133.9 131.8 Estimated GFR (Non- 115.6 113.7 BUN/Creatinine Ratio 7.9 9.1 Random Glucose 120 mg/dl 110 mg/dl Calcium Level 8.3 mg/dl 8.3 mg/dl Total Bilirubin 0.3 mg/dl Direct Bilirubin < 0.1 mg/dl Aspartate Amino Transf (AST/SGOT) 20 U/L Alanine Aminotransferase (ALT/SGPT) 21 U/L Alkaline Phosphatase 64 U/L Total Protein 6.4 gm/dl Albumin 2.7 gm/dl Bedside Lactic Acid Venous 1.01 mmol/L Urine Color YELLOW Urine Appearance CLEAR Urine pH 6.5 Urine Specific Lawn 1.015 Urine Protein 2+ Urine Glucose (UA) NEG Urine Ketones 1+ Urine Occult Blood 2+ Urine Nitrite NEG Urine Bilirubin NEG Urine Urobilinogen NEG Urine Leukocyte Esterase SMALL Urine WBC (Auto) >30 /hpf Urine RBC (Auto) 10-30 /hpf Urine Hyaline Casts (Auto) 5-10 /lpf Urine Epithelial Cells (Auto) >30 /lpf Urine Bacteria (Auto) NEG (Rhea Merchant, NUSRAT) Assessment and Plan 21 y/o F with a history of a recent UTI who presented to the ED on 01/22 with positive blood culture. The patient had presented to the ED one day prior with fever, leukocytosis, and tachycardia and discharged on Ceftin. Pyelonephritis, bacteremia - BCx from 01/21 positive for GNR x 1, sensitivities pending, Follow repeat BCx 01/22 - Follow UCx for final results - Renal U/S reviewed- without hydronephrosis, R kidney larger than left likely related to pyelo, debris in bladder. - Received 1 dose of Zosyn IV and Rocephin in the ED on 01/22 - continue zosyn - NSS + 40 mEq KCl at 125 cc/hr - Will update parents after culture results - spoke with Micro lab - will not have final results until tomorrow morning. Hypokalemia - Replace as needed. Alcohol Use - Pt admits to weekend drinking of liquor, mostly vodka- and has 3-5 shots at a time. Denies episodes of passing out/black outs. Drinks with friends, and does not feel need to drink alone, denies depression. Cessation encouraged at bedside. DVT ppx: Encourage ambulation CODE STATUS: FULL Disposition: From home, dc when medically stable, likely within 24 hours. Awaiting final culture results. (Rhea Merchant, NUSRAT) Attending Attestation: Pt seen/examined, chart reviewed, care plan d/w MASTER Merchant. I agree w/ the anderson components of her documentation. Pt w/ minimal right flank pain only. no prior h/o UTIs, renal stones. recently became sexually active about 2 weeks ago. VSS no fever gen - nad heart - RRR lungs - CTA b/l abd - minimal right flank pain to palpation, bs+, soft ext - no edema A/P: 1. sepsis 2nd to UTI/right-sided pyelonephritis; cannot fully r/o a passed renal stone but doubtful. 2. GNR septicemia - likely 2nd to e.coli. 3. e. coli was sensitive to cipro/levaquin. If blood cx's are e. coli then d/ c home on 14 days of cipro by mouth. 4. send urine for GC/chlamydia given recent initiation of sexual activity. 5. repeat blood cx's negative. mother ([phone]) updated by phone Ms. Merchant updated father by phone as well earlier today Lori HENRIQUEZ MD (Candelario Henriquez MD)
[2017-01-23 14:52] VITALS: BP 108/76; PULSE 86; TEMP 36.7; O2SAT 98
[2017-01-23] MEDS: LACTOBACILLUS ACIDOPHILUS (FLORANEX) TAB PO SCH (17:05)
[2017-01-24 00:10] VITALS: BP 112/81; PULSE 90; TEMP 36.8; O2SAT 96
[2017-01-24] MEDS: PIPERACILL/TAZOBAC IV 3.375 GM in DEXTROSE 5% 100ML IV SCH (05:35)
[2017-01-24 06:08] LABS: BASO % 0.2 %; BASO ABS # 0.02 K/uL (0-0.2); COMPLETE YES; EOS % 2.5 %; HEMATOCRIT 37.6 % (37-47); IG% 0.3 %; LYMPH % 29.9 %; MEAN CELL VOLUME 92.2 fL (80-100); MEAN CORPUSCULAR HEMOGLOBIN 30.4 pg (25-34); MEAN PLATELET VOLUME 9.2 fL (7.4-10.4); MONO % 14.3 %; NEUT % 52.8 %; PLATELET COUNT 304 K/uL (130-400); RED BLOOD COUNT 4.08 M/uL (4.2-5.4); WHITE BLOOD COUNT 9.37 K/uL (4.8-10.8)
[2017-01-24 07:08] LABS: BUN/CREATININE RATIO 6.6 (10-20); CREATININE 0.82 mg/dl (0.60-1.20); MAGNESIUM 2.1 mg/dl (1.8-2.4); POTASSIUM 4.2 mmol/L (3.5-5.1)
[2017-01-24 07:48] VITALS: BP 108/73; PULSE 76; TEMP 36.3; O2SAT 99
[2017-01-24 07:51] VITALS: O2SAT 99
[2017-01-24] MEDS ORDERED: CIPROFLOXACIN 500 MG TAB PO SCH (08:00)
[2017-01-24] MEDS ORDERED: CPR500 PO (08:14)
--- NOTE | 2017-01-24 08:22 | Discharge Instructions ---
Discharge Instructions Date of Service Jan 24, 2017. Admission Reason for Admission: Pyelonephritis Discharge Discharge Diagnosis / Problem: Pyelonephritis Discharge Goals Goal(s): Decrease discomfort, Improve function, Increase independence, Improve disease control Activity Recommendations Activity Limitations: resume your previous activity Lifting Limitations: none Exercise/Sports Limitations: none May Resume Sexual Activity: when tolerated (Practice hygenic sexual activity with urinating immediately after intercourse, cleansing, and using barrier protection with condoms to prevent STDs. ) . Instructions / Follow-Up Instructions / Follow-Up You were admitted to [facility] with acute Right flank pain and diagnosed with pyelonephritis from E. coli Urinary tract infection. During your stay here you were treated with intravenous antibiotics (Zosyn) x 2 days, and other supportive care. Microbiology: - Urine culture from 01/21 grew E.coli - Blood culture from 01/21 grew E. coli. (One out of two bottles) - Repeat blood cultures on 01/22 were negative for any growth - showing clearance. Imaging studies which were completed include Renal Ultrasound, and were abnormal showing involving pyelonephritis Medications: - Take ciprofloxacin 500 mg twice daily x 12 more days to complete a 2 week course. Follow up: - Follow up with [facility] on 01/26/17. Current Hospital Diet Patient's current hospital diet: Regular Diet Discharge Diet Recommended Diet: Regular Diet Pending Studies Studies pending at discharge: no Medical Emergencies . Who to Call and When: Medical Emergencies: If at any time you feel your situation is an emergency, please call 911 immediately. . Non-Emergent Contact Non-Emergency issues call your: Primary Care Provider Call Non-Emergent contact if: you have a fever, temperature is above 100.5, your pain is not controlled, your pain is worsening, you have any medication questions other concerns with your health. Call 911 or go directly to the Emergency Department if you experience any of the following: Chest pain, chest tightness, shortness of breath, abdominal pain , lightheadedness, dizziness, gastrointestinal bleeding, or have any other concerns regarding your health. . . "Provider Documentation" section prepared by Uzma Merchant. Attending Attestation: Pt seen/examined and discharge care plan d/w MASTER Merchant; I agree with her discharge instructions as outlined. Candelario Burrell MD . VTE Core Measure Inpt VTE Proph given/why not?: Other Anticoagulation (Ambulatory)
--- NOTE | 2017-01-24 08:25 | Discharge Summary ---
Discharge Summary Date of Service Jan 24, 2017. (Rhea Merchant PA-C) Discharge Summary Admission Date: Jan 23, 2017 at 18:58 Discharge Date: Jan 24, 2017 Discharge Disposition: Home Principal Diagnosis: Pyelonephritis, E. coli UTI Problems/Secondary Diagnoses: (1) Unspecified Asthma, Uncomplicated Status: Chronic Procedures: ULTRASOUND KIDNEYS AND BLADDER CLINICAL HISTORY: Sepsis. Pyelonephritis. COMPARISON STUDY: Abdominal CT dated 01/21/2017. TECHNIQUE: Real-time, grayscale, and color flow sonography of the kidneys and bladder is performed. Images are reviewed in the transverse and longitudinal planes. FINDINGS: Kidneys: The kidneys are normal in size and heterogeneous in echotexture, right greater than left. The right kidney measures 12.0 x 4.3 x 6.7 cm and the left kidney measures 10.3 x 4.7 x 5.8 cm. There is no hydronephrosis. No shadowing renal calculi are identified. There is no sonographic evidence of contour deforming renal mass lesion. No perinephric fluid is identified. Bladder: Debris is present within the bladder lumen. The bladder is otherwise normal in appearance. Bilateral ureteral jets were seen. IMPRESSION: 1. The kidneys are normal in size and without hydronephrosis. 2. The kidneys are heterogeneous in echotexture, right greater than left. This is likely related to the reported clinical history of pyelonephritis. Clinical correlation will be required. 3. Debris is noted in the bladder lumen. Electronically signed by: Ed Devries M.D. 01/22/2017 2:41 PM Dictated Date/Time: 01/22/2017 2:39 PM The status of this report is Signed. Consultations: None (Rhea Merchant PA-C) Problems/Secondary Diagnoses: e. coli bacteremia/septicemia (Candelario Burrell MD) Medication Reconciliation New Medications: Ciprofloxacin (Ciprofloxacin HCl) 500 Mg Tab 500 MG PO BID for 12 Days, #24 TAB Continued Medications: Control Pills ( Control Pills) Tab 1 TAB PO DAILY, TAB Discontinued Medications: Cefuroxime Axetil (Cefuroxime Axetil) 500 Mg Tab 1 TAB PO BID for 7 Days, #14 TAB Discharge Exam The patient was seen and examined this morning. Pt reports doing well. She has minimal soreness in the Right flank area but it is improved compared to yesterday. She denies fevers, sweats or chills. Review of Systems: Constitutional: No fever, No chills, No sweats Eyes: No discharge, No diplopia ENT: No sore throat, No trouble swallowing Respiratory: No cough, No sputum, No wheezing, No shortness of breath Cardiovascular: No chest pain, No edema Abdomen: No pain, No nausea, No vomiting, No diarrhea, No constipation Musculoskeletal: No joint pain, No swelling Genitourinary - Female: No dysuria, No urinary frequency, No urinary urgency , No urinary incontinence, No urinary retention, No hematuria Neurologic: No numbness/tingling Endocrine: No fatigue Integumentary: No rash, No itch Physical Exam: General Appearance: WD/WN, no apparent distress Eyes: PERRL, EOMI ENT: hearing grossly normal, pharynx normal Neck: supple, no JVD Respiratory/Chest: lungs clear, no respiratory distress, no accessory muscle use Cardiovascular: regular rate, rhythm, no murmur, normal peripheral pulses Abdomen / GI: normal bowel sounds, non tender, soft, + pertinent finding ( Back: no CVA tenderness) Extremities: normal inspection, no calf tenderness, no pedal edema Neurologic/Psychiatric: alert, oriented x 3 Skin: normal color, warm/dry (Rhea Merchant, NUSRAT) Hospital Course History of Present Illness This is a 21 y/o female with a history of a recent UTI who presented to the ED on 01/22 with positive blood culture. The patient developed a urinary tract infection with dysuria and increased urinary frequency about 1.5 weeks ago. She was prescribed an antibiotic (she is not sure which) to take for 7 days and her symptoms improved. A few days ago the patient developed right flank/back pain, fevers, chills, and sweats. She presented to the ED on 01/21 febrile, tachycardic, and with leukocytosis. Blood and urine cultures were drawn. An abdomen/pelvis CT showed mild inflammatory stranding of the right kidney. The patient was given Rocephin and then discharged home with Ceftin. Today the patient was called to return due to 1 positive blood culture with GNR. The patient states that her back/flank pain has now resolved as well as her urinary symptoms. She has not had any fevers today as well. She denies any vaginal symptoms such as pain or abnormal bleeding. The patient denies fevers, chills, sweats, chest pain, palpitations, claudication, cough, wheezing, shortness of breath, nausea, vomiting, abdominal pain, dysuria, hematuria, urinary retention , paralysis, weakness, numbness and tingling. Physical Exam Vital Signs Date Time Temp Pulse Resp B/P (MAP) Pulse Ox O2 Delivery O2 Flow Rate FiO2 01/22/17 15:02 90 18 97/55 99 Room Air 01/22/17 12:59 36.8 108 16 109/69 99 Room Air General appearance: Well-developed, well-nourished, no apparent distress Head: Normocephalic, atraumatic Eyes: Normal inspection, PERRL, EOMI ENT: Normal ENT inspection, hearing grossly normal, pharynx normal Neck: Supple, no JVD, trachea midline Respiratory/Chest: Lungs clear to auscultation, normal breath sounds, no respiratory distress Cardiovascular: Regular rate & rhythm, no gallop, no murmur Abdomen/GI: +Mild right CVA tenderness. Normal bowel sounds, non-tender, soft Extremities/Musculoskeletal: Normal inspection, no calf tenderness, no pedal edema Neurological/Psych: Alert, normal mood/affect, oriented x 3 Skin: Normal color, warm/dry, no rash Hospital Course: 21 y/o F with a history of a recent UTI who presented to the ED on 01/22 with positive blood culture. The patient had presented to the ED one day prior with fever, leukocytosis, and tachycardia and discharged on Ceftin. Pyelonephritis, bacteremia - BCx from 01/21 positive for GNR x 1 - Final Results is E. coli in /2 bottles sensitive to Cipro - Rx for Cipro 500 mg BID x 12 days prescribed at time of d/ c to complete a 14 day course from date of negative BCx repeat which was done on 01/22. - Urine culture from 01/21 with E.coli - Renal U/S reviewed- without hydronephrosis, R kidney larger than left likely related to pyelo, debris in bladder. - Received Zosyn IV and Rocephin in the ED on 01/22, then continued with zosyn during hospital stay. - Good oral intake. - Pt educated on hygenic sexual practices, using condom for barrier protection since she is only on OCP. - Follow up to be arranged with Health services on campus for this Sunday. - Updated pt's father, Mr Garrett at [phone] at 08:50. He reports that he will discuss this with his . Hypokalemia - Replace as needed. Alcohol Use - Pt admits to weekend drinking of liquor, mostly vodka- and has 3-5 shots at a time. Denies episodes of passing out/black outs. Drinks with friends, and does not feel need to drink alone, denies depression. Cessation encouraged at bedside. DVT ppx: Encourage ambulation CODE STATUS: FULL Disposition: From home, id today Total Time Spent: Greater than 30 minutes This includes examination of the patient, discharge planning, medication reconciliation, and communication with other providers. (Rhea Merchant, NUSRAT) Attending Discharge Note & Attestation: Pt seen/examined, chart reviewed, discharge care plan d/w MASTER Merchant. I agree with the anderson components of her discharge summary. 21yo female with no PMH and no prior h/o UTI who presented after she was called by the [facility] ER that her blood cultures had turned positive. She had been seen on 01/21/17 in the [facility] ER and diagnosed with UTI with right-sided pyelonephritis. She was stable at that visit and discharged home on oral antibiotics. The patient was doing well and making a nice recovery from her illness when the blood cultures turned positive on 01/22/17. Following admission the patient did well with no fever and resolution of her leukocytosis. Blood cultures from 01/21/17 ultimately recovered e. coli with the same sensitivity pattern as her urine culture from the same date. Repeat blood cultures drawn on 01/22/17 remained negative suggesting sterility. She was changed from broad-spectrum IV antibiotics to oral cipro at time of discharge and will complete 12 more days of cipro 500mg BID. She was asked to use a second form of control while on the cipro as it could render her OCPs less effective. Discharge exam: gen - NAD mouth - MMM heart - RRR, s1, s2 lungs - CTA b/l abd - soft, NT, BS+, no HSM, no flank tenderness ext - no edema On the day of discharge the patient reported that about one week prior to her ER visit she had taken nearly a 7-day course of oral antibiotics for presumed UTI. She was counseled that in today's age of multidrug resistant pathogens causing UTIs it was always best to seek medical attention EARLY in the course of a UTI AND to obtain a urine culture to guide antibiotic therapy (rather than treating a UTI blindly). She voiced understanding. Candelario Burrell MD (Candelario Burrell MD) Discharge Instructions Please refer to the electronic Patient Visit Report (Discharge Instructions) for additional information. (Rhea Merchant PA-C) Follow-Up [facility] on Sunday on 01/26, appointment has been requested. (Rhea Merchant PA-C) Additional Copies To [facility]
[2017-01-24] MEDS: LACTOBACILLUS ACIDOPHILUS (FLORANEX) TAB PO SCH (09:05)
[2017-01-24 09:40] VITALS: BP 108/73; PULSE 76; TEMP 36.3; O2SAT 99
--- NOTE | 2017-01-28 10:45 | EDITING REQUIRED CODING QUERY ---
SEPSIS To promote full compliance with coding requirements relating to patient care, physician participation is requested in all cases of manager application development uncertainty. Please assist us with the question(s) below: In responding to this query, please exercise your independent professional judgement. The fact that a question is asked does not imply that any particular answer is desired or expected. We appreciate your clarification on this issue. Throughout the medical record, you have clearly documented a localized infection and your patient has clinical evidence of a generalized sepsis or severe sepsis. The term urosepsis is a nonspecific entity and is coded as an UTI. If the patient has sepsis, severe sepsis, from an urinary source or some other source, please clarify in your response below. The medical record reflects the following clinical findings: Patient admitted with Pyelonephritis. C/S positive for E.Coli. D/S states bacteremia; progress note states Sepsis. Please document below the diagnosis you were treating. Thanks for your help! ENRIKE Hamlin [facility] (x )Bacteremia (Nonspecific laboratory finding of bacteria in the blood) Specify Organism ( ) Present on Admission( ) Not present on admission ( ) Unable to clinically determine (x ) Septicemia (Systemic disease associated with the presence of pathogenic microorganisms in the blood): Specify Organism ( ) Present on Admission( ) Not present on admission ( ) Unable to clinically determine ( ) Sepsis Specify Organism Specify Associated Condition/Diagnosis ( ) Present on Admission( ) Not present on admission ( ) Unable to clinically determine ( ) Severe Sepsis (Sepsis associated with acute organ dysfunction) Specify Organism Specify Associated Condition/Diagnosis ( ) Present on Admission( ) Not present on admission ( ) Unable to clinically determine ( ) Septic Shock (Severe sepsis with acute circulatory failure, unexplained by other causes) ( ) Present on Admission( ) Not present on admission ( ) Unable to clinically determine ( ) Other, patient has:
== END 2017-01-24 10:29 | disposition home or self-care (01) | DRG 872 ==
LOC: C.EDB 12:40 → C.4E 15:20 → ENRESERV 15:37 → OBSVTOIN 01-23 18:58
PROVIDERS: ADMIT Internal Medicine; ATTEND Internal Medicine
DX: A41.51 Sepsis due to Escherichia coli [E. coli] (principal); N12 Tubulo-interstitial nephritis, not specified as acute or chronic; J45.909 Unspecified asthma, uncomplicated; E87.6 Hypokalemia